=== PATIENT | male | born 1960 | race African-American/Black ===

== ENCOUNTER 2020-08-29 10:12 | Emergency (ER) | payer OTHER ==
[~2020-08-29] VITALS: Ht 190.5 cm; Wt 130.0 kg
[2020-08-29 12:04] VITALS: BP 120/76
== END 2020-08-29 12:05 | disposition home or self-care (01) ==
LOC: ER 10:12
DX: R50.9 Fever, unspecified (principal); Z20.828 Contact with and (suspected) exposure to other viral communicable diseases
CPT/HCPCS: 87635; 99283

== ENCOUNTER 2021-06-27 15:24 | Emergency (ER) | payer OTHER ==
[~2021-06-27] VITALS: Ht 193 cm; Wt 104.0 kg
[2021-06-27] MEDS ORDERED: MORPHINE SULFATE 10 MG/ML CPJ IM ONE (15:45)
[2021-06-27] MEDS ORDERED: ONDANSETRON HCL 4MG/2ML INJ IV STA (17:06)
[2021-06-27] MEDS ORDERED: MORPHINE SULFATE 4 MG/ML CPJ (NOT FOR IM USE) IV STA (17:06)
[2021-06-27 17:37] LABS: BASOPHILS % 0.5 % (0.0-2.0); EOSINOPHILS % 0.8 % (0.0-5.0); HEMATOCRIT. 39.5 % (42.0-52.0); HEMOGLOBIN. 13.4 g/dL (14.0-18.0); LYMPHOCYTES % 19.4 % (20.0-50.0); MEAN CORPUSCULAR HEMOGLOBIN 29.8 pg (28.0-32.0); MEAN PLATELET VOLUME 7.9 fl (7.4-10.4); NEUTROPHILS % 73.3 % (40.0-76.0); PLATELET 222 x1000/uL (130-400); RED BLOOD CELL COUNT 4.49 mill/uL (4.7-6.1); RED CELL DISTRIBUTION WIDTH 12.7 % (11.6-14.6)
[2021-06-27 17:44] LABS: CHLORIDE 106 mEq/L (98-107)
[2021-06-27] MEDS ORDERED: T3 PO (19:20)
[2021-06-27] MEDS ORDERED: IBUP-2029 MT (19:23)
[2021-06-27 19:39] VITALS: BP 145/84
== END 2021-06-27 19:43 | disposition home or self-care (01) ==
LOC: ER 15:24
DX: S50.01XA Contusion of right elbow, initial encounter (principal); I11.9 Hypertensive heart disease without heart failure; W18.2XXA Fall in (into) shower or empty bathtub, initial encounter; Y93.F1 Activity, caregiving, bathing; Y92.89 Other specified places as the place of occurrence of the external cause; Z95.1 Presence of aortocoronary bypass graft
CPT/HCPCS: 36415; 73080; 73200; 80053; 85025; 96372; 96374; 96375; 99291; J2270; J2405; A4565